=== PATIENT | female | born 1960 | race Caucasian/White ===

== ENCOUNTER → 2016-05-21 | Outpatient (CLI) | payer OTHER, BC ==
--- NOTE | 2016-05-21 13:45 | DIAGNOSTIC IMAGING REPORT ---
MRI OF THE RIGHT ANKLE WITHOUT IV CONTRAST CLINICAL HISTORY: Right ankle pain. COMPARISON STUDY: Radiographs of the right ankle dated 02/27/2016. TECHNIQUE: MRI of the right ankle is performed utilizing various T1 and T2-weighted sequences in the axial, sagittal and coronal planes. IV contrast was not administered for this examination. FINDINGS: The anterior and posterior talofibular ligaments appear intact. The anterior tibiofibular ligament appears preserved. There is significant marrow edema identified within the talus, greatest posteriorly and medially. There is also mild marrow edema seen within the anterior calcaneus and at the subtalar articulation posteriorly. No osteochondral defect is identified in the talar dome. 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 There is mild marrow edema present within the os trigonum. No significant joint effusion is identified. There is no evidence of normal fat within the sinus tarsi. There is a large plantar calcaneal enthesophyte. The plantar fascia is normal as visualized. The Achilles tendon is thickened, and there is trace surrounding fluid. The anterior, posterior, and peroneal tendons are maintained. Regional musculature is normal in bulk and signal intensity. IMPRESSION: 1. 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 Correlate clinically for evidence of os trigonum syndrome. 2. There is significant edema within the talus and the calcaneus, nonspecific and possibly on a degenerative basis. Clinical correlation will be required. 3. The Achilles tendon appears thickened there is partial thickness tearing which may be chronic. No full-thickness tear is seen. Dictated: 05/21/2016 1:13 PM Transcribed: 05/21/2016 1:44 PM Gabriel Electronically signed by: Scar Mejia M.D. 05/21/2016 2:00 PM Dictated Date/Time: 05/21/2016 1:13 PM
== END | disposition home or self-care (01) ==
LOC: C.MRIBC 09:46
PROVIDERS: ATTEND Orthopaedic Surgery
DX: M25.571 Pain in right ankle and joints of right foot (principal)

== ENCOUNTER → 2016-08-27 | Outpatient (CLI) | payer BC ==
[2016-08-27 16:16] LABS: ALB/GLOB RATIO 0.8 (0.9-2); ALKALINE PHOSPHATASE 93 U/L (45-117); ALT/SGPT 20 U/L (12-78); AST/SGOT 16 U/L (15-37); BLOOD UREA NITROGEN 11 mg/dl (7-18); BUN/CREATININE RATIO 16.3 (10-20); CALCIUM 9.6 mg/dl (8.5-10.1); CARBON DIOXIDE 32 mmol/L (21-32); CHLORIDE 103 mmol/L (98-107); CHOLESTEROL 168 mg/dl (0-200); CHOLESTEROL/HDL RATIO 2.7; CREATININE 0.67 mg/dl (0.60-1.20); GLUCOSE 94 mg/dl (70-99); HDL CHOLESTEROL 62 mg/dl; LDL CHOLESTEROL CALCULATED 76 mg/dl; POTASSIUM 3.6 mmol/L (3.5-5.1); SODIUM 140 mmol/L (136-145); TRIGLYCERIDES 151 mg/dl (0-150); VERY LOW DENSITY LIPOPROT CALC 30 mg/dl
== END | disposition home or self-care (01) ==
LOC: C.LAB1850 11:13
PROVIDERS: ATTEND Internal Medicine
DX: Z00.00 Encounter for general adult medical examination without abnormal findings (principal); Z11.59 Encounter for screening for other viral diseases; E78.5 Hyperlipidemia, unspecified

== ENCOUNTER → 2017-02-28 | Outpatient (CLI) | payer BC ==
--- NOTE | 2017-02-28 15:23 | DIAGNOSTIC IMAGING REPORT ---
L KNEE 1 OR 2 VIEWS ROUTINE CLINICAL HISTORY: 56 years-old Female presenting with M25.562 Left knee [id number]. TECHNIQUE: Frontal and lateral views of the left knee were obtained. COMPARISON: Correlation made to plain radiographs of the right knee performed the same day. FINDINGS: No acute fracture or acute malalignment. Tricompartmental degenerative changes with medial joint space loss and subchondral sclerosis. No gross evidence of a knee joint effusion. Enthesophyte formation at the insertion of the quadriceps tendon. IMPRESSION: Tricompartmental degenerative changes worst in the medial compartment. Electronically signed by: Lizandro Reed M.D. 02/28/2017 3:22 PM Dictated Date/Time: 02/28/2017 3:21 PM
--- NOTE | 2017-02-28 15:35 | DIAGNOSTIC IMAGING REPORT ---
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 Mild lateral compartment disease. There is no acute fracture or dislocation. Small joint effusion. No opaque foreign body. IMPRESSION: 1. Degenerative changes as above without acute fracture or dislocation. 2. Small joint effusion. The above report was generated using voice recognition software. It may contain grammatical, syntax or spelling errors. Electronically signed by: Artie Nixon M.D. 02/28/2017 3:33 PM Dictated Date/Time: 02/28/2017 3:32 PM
== END | disposition home or self-care (01) ==
LOC: C.RAD1850 14:50
PROVIDERS: ATTEND Internal Medicine
DX: M25.562 Pain in left knee (principal)